=== PATIENT | female | born 1990 | race Caucasian/White ===

== ENCOUNTER 2018-11-14 13:36 | Emergency (ER) | payer OTHER ==
[2018-11-14 13:48] VITALS: RESP 18
[2018-11-14] MEDS ORDERED: LIDOCAINE/EPINEPHR/TETRACAINE 5 ML BOTTLE TOPICAL ONE (14:39)
[2018-11-14] MEDS ORDERED: IBUPROFEN 600 MG STARTER PACK 4 TAB BTL PO STA (14:43)
[2018-11-14] MEDS ORDERED: ACETAMINOPHEN TAB 500 MG TAB PO STA (14:43)
--- NOTE | 2018-11-14 14:53 | CT ---
EXAMINATION TYPE: CT brain wo con DATE OF EXAM: 11/14/2018 COMPARISON: NONE HISTORY: Blow to head, laceration at site. CT DLP: 1056.4 mGycm. Automated Exposure Control for Dose Reduction was Utilized. TECHNIQUE: CT scan of the head is performed without contrast. FINDINGS: There is no acute intracranial hemorrhage, mass effect, or midline shift identified. The ventricles and sulci are within normal limits in size. The globes are intact and the visualized sin uses are clear. There is a small left frontal scalp laceration seen on image 16 without underlying he matoma of the subcutaneous tissues. No suspicious extra-axial fluid collection is seen. IMPRESSION: Small left frontal scalp laceration without underlying hematoma. No acute intracranial he morrhage, mass effect, or midline shift is seen.
--- NOTE | 2018-11-14 14:56 | ED ---
Head Injury HPI - General Chief complaint: Head Injury Stated complaint: head lac Time Seen by Provider: 11/14/18 13:41 Source: patient, EMS, RN notes reviewed, old records reviewed Mode of arrival: EMS Limitations: no limitations - History of Present Illness Initial comments: Patient is a 28 rolled female presents emergency department today for evaluation complains of head injury. Patient reports that she was in the room and moving a bunk bed. It fell hit her head causing a laceration over 400. She claims of some headache. She denies loss of consciousness. Patient states she does have a laceration over his frontal scalp. Patient denies any chest pain transferred from another vomiting. - Related Data Home Medications Medication Instructions Recorded Confirmed No Known Home Medications 11/14/18 11/14/18 Allergies/Adverse reactions: Allergies Allergy/AdvReac Type Severity Reaction Status Date / Time No Known Allergies Allergy Verified 11/14/18 13:55 Review of Systems ROS Statement: Those systems with pertinent positive or pertinent negative responses have been documented in the HPI. ROS Other: All systems not noted in ROS Statement are negative. Past Medical History Past Medical History: Hypertension Additional Past Medical History / Comment(s): blood clots, anemia, and high blood pressure during entire in 2013 History of Any Multi-Drug Resistant Organisms: None Reported Past Surgical History: Section Past Psychological History: No Psychological Hx Reported Smoking Status: Current every day smoker Past Alcohol Use History: None Reported Past Drug Use History: Marijuana General Exam - General Exam Comments Initial Comments: 28 rolled female. Alert and oriented. No distress. Limitations: no limitations General appearance: alert, in no apparent distress Head exam: Present: atraumatic, normocephalic, normal inspection Eye exam: Present: normal appearance, PERRL, EOMI. Absent: scleral icterus, conjunctival injection, periorbital swelling ENT exam: Present: normal exam, mucous membranes moist, other (Patient has a 2 cm frontal scalp laceration. Bleeding well controlled.) Neck exam: Present: normal inspection. Absent: tenderness, meningismus, lymphadenopathy Respiratory exam: Present: normal lung sounds bilaterally. Absent: respiratory distress, wheezes, rales, rhonchi, stridor Cardiovascular Exam: Present: regular rate, normal rhythm, normal heart sounds. Absent: systolic murmur, diastolic murmur, rubs, gallop, clicks GI/Abdominal exam: Present: soft, normal bowel sounds. Absent: distended, tenderness, guarding, rebound, rigid Extremities exam: Present: normal inspection, full ROM, normal capillary refill. Absent: tenderness, pedal edema, joint swelling, calf tenderness Back exam: Present: normal inspection Neurological exam: Present: alert, oriented X3, CN II-XII intact Psychiatric exam: Present: normal affect, normal mood Skin exam: Present: warm, dry, intact, normal color. Absent: rash Course Vital Signs 11/14/18 13:37 Temperature 97.5 F L Pulse Rate 75 Respiratory 18 Rate Blood Pressure 128/83 O2 Sat by Pulse 100 Oximetry Procedures - Laceration Laceration #1 Site: face (forehead) Size (cm): 2 Description: linear Depth: simple, single layer Anesthetic Used: lidocaine 1% Anesthesia Technique: local infiltration Amount (mls): 2 Pre-repair: wound explored, irrigated extensively Type of Sutures: nylon Size of Sutures: 6-0 Number of Sutures: 3 Technique: simple, interrupted Patient Tolerated Procedure: well, no complications Medical Decision Making - Medical Decision Making 28-year-old female percent returns today for violation after head injury from bunk bed and coming down hitting her head. She has a 7 m for her laceration. This was thoroughly irrigated and closed with 3 sutures. Discussed suture instructions and monitoring for infection. Patient complained of significant headache after this injury. CT of brain was completely negative for any acute process. Patient will be discharged at this time with concussion instructions and laceration instructions. - Radiology Data Radiology results: report reviewed Chest x-rays negative for any acute educational aide process. Small left frontal scalp laceration with underlying hematoma. No acute intracranial hemorrhage mass effect or midline shift seen. Disposition Clinical Impression: Laceration of forehead, Head injury Disposition: HOME SELF-CARE Condition: Good Instructions (If sedation given, give patient instructions): Concussion (ED), Laceration (ED), Care For Your Stitches (ED) Additional Instructions: Please return to the emergency room in 5-7 days to have sutures removed. Please leave wound covered for the first 24-48 hours and then leave open to air after that time. Please use clean soap and water to clean the suture area to prevent scabbing over the top of your sutures. Please watch for any signs of infection which may include but not limited to increased pain, swelling, redness, fever or chills. Please return to the emergency room if any signs of infection do occur. Please return to the emergency room for any other concerns or complications. Take Motrin or Tylenol for pain. Is patient prescribed a controlled substance at d/c from ED?: No Referrals: None,Stated [Primary Care Provider] - 1-2 days Time of Disposition: 15:28
[2018-11-14 15:48] VITALS: BP 117/72; PULSE 71; TEMP 97.1
== END 2018-11-14 15:48 | disposition home or self-care (01) ==
LOC: EC 13:36
DX: S01.81XA Laceration without foreign body of other part of head, initial encounter (principal); F17.200 Nicotine dependence, unspecified, uncomplicated; W22.03XA Walked into furniture, initial encounter; Y93.89 Activity, other specified; Y92.009 Unspecified place in unspecified non-institutional (private) residence as the place of occurrence of the external cause
CPT/HCPCS: 12011; 70450; 99284